=== PATIENT | female | born 1945 | race Caucasian/White ===

== ENCOUNTER 2023-07-22 09:17 | Outpatient (CLI) | payer MEDICARE | END 2023-07-22 09:18 | disposition home or self-care (01) | LOC: BICMAMMO 09:17 | PROVIDERS: ATTEND Student in an Organized Health Care Education/Training Program | DX: N60.12 Diffuse cystic mastopathy of left breast (principal); R92.8 Other abnormal and inconclusive findings on diagnostic imaging of breast ==

== ENCOUNTER 2024-10-04 12:42 | Outpatient (CLI) | payer MEDICARE | END 2024-10-04 12:43 | disposition home or self-care (01) | LOC: BICMAMMO 12:42 | PROVIDERS: ATTEND Student in an Organized Health Care Education/Training Program | DX: Z12.31 Encounter for screening mammogram for malignant neoplasm of breast (principal) | CPT/HCPCS: 77063; 77067 ==

== ENCOUNTER 2025-10-09 09:30 | Outpatient (CLI) | payer MEDICARE | END 2025-10-09 09:31 | disposition home or self-care (01) | LOC: BICMAMMO 09:30 | PROVIDERS: ATTEND Student in an Organized Health Care Education/Training Program | DX: Z12.31 Encounter for screening mammogram for malignant neoplasm of breast (principal) | CPT/HCPCS: 77063; 77067 ==